=== PATIENT | male | born 1950 | race Caucasian/White ===

== ENCOUNTER → 2017-08-12 | Emergency (ER) | payer MEDICARE, BC ==
[~2017-08-12] VITALS: Ht 172.7 cm; Wt 69.4 kg
[~2017-08-12] MED LIST: AUGMENTIN 500-1 EACH ORAL; METFORMIN HCL1000 M1 ORAL; METFORMIN HCL500 M1 ORAL; Tetanus/Diptheria/Pertussis Vaccine 0.5ml Syr IM ONE
[2017-08-12 16:10] VITALS: BP 102/72
--- NOTE | 2017-08-12 16:37 | Emergency Room Report ---
History of Present Illness General Chief Complaint: Animal Bite Source: Patient Present Illness HPI The patient is a 66-year-old male presenting for dog bites to the right hand. He states that this occurred 2 hours prior to arrival. He states that it was a small domesticated dog that was unknown to him. He is unsure if the animal had vaccinations. he denies any pain. He did notice some bleeding from the wound. His last tetanus shot is unknown. He denies any other symptoms or injury Allergies: Coded Allergies: No Known Allergies (Unverified , 08/12/17) Patient History Past Medical History: see triage record Pertinent Family History: none Reviewed Nursing Documentation: PMH: Agreed, PSxH: Agreed Nursing Documentation-PMH Hx Diabetes: Yes Review of Systems All Other Systems: negative except mentioned in HPI Physical Exam Vital Signs Date Time Temp Pulse Resp B/P (MAP) Pulse Ox O2 Delivery O2 Flow Rate FiO2 08/12/17 15:09 97.9 76 16 102/72 96 Room Air Sp02 EP Interpretation: reviewed, normal General Appearance: no apparent distress, alert, GCS 15, non-toxic Head: normocephalic, atraumatic Eyes: bilateral eye normal inspection, bilateral eye PERRL Musculoskeletal: back normal, gait/station normal, normal range of motion, non- tender Neurologic: alert, oriented x3, responsive, motor strength/tone normal, sensory intact, speech normal Psychiatric: judgement/insight normal, memory normal, mood/affect normal, no suicidal/homicidal ideation Skin: laceration - small 1cm puncture of the R distal thumb Lymphatic: no adenopathy Medical Decision Making PA Attestation Dr. Stubbs is my supervising physician. Patient management was discussed with my supervising physician Diagnostic Impression: Primary Impression: Dog bite of extremity ER Course The patient is a 66-year-old male presenting for dog bite to the right hand. Ddx considered include but not limited to animal bite, wound infection, fracture, tendon/ligament injury, avulsion, nerve damage PE: NAD small 1cm puncture of the R distal thumb. SILT. Full AROM intact. No bleeding The wound is thoroughly cleaned with normal saline and Betadine. Dressing applied Patient is given tetanus shot and first dose of antibiotics. He is discharged home with prescription for Augmentin and will followup with primary doctor. He is given ER precautions to return Last Vital Signs Date Time Temp Pulse Resp B/P (MAP) Pulse Ox O2 Delivery O2 Flow Rate FiO2 08/12/17 16:10 97.9 16 102/72 96 Room Air 08/12/17 15:09 76 Status: improved Disposition: HOME, SELF-CARE Condition: Improved Scripts Amoxicillin/Potassium Clav 500-125 Tablet* (AUGMENTIN 500-125 TABLET*) 1 Each Tablet 1 TAB ORAL THREE TIMES A DAY, #15 TAB Prov: MARQUISE GUERIN 08/12/17 Patient Instructions: Animal Bite Additional Instructions: I discussed my findings with the patient. All questions and concerns have been answered. Treatment and medication compliance have been addressed. I advised the patient that they need to follow up with PMD in 3-5 days. Return to ED if symptoms worsen, new symptoms arise, or if needed for any reason. Patient verbalized understanding of discharge instructions. MARQUISE GUERIN Aug 12, 2017 16:37
== END | disposition home or self-care (01) ==
LOC: EMR 15:10
DX: S61.451A Open bite of right hand, initial encounter (principal); Z23 Encounter for immunization; E11.9 Type 2 diabetes mellitus without complications; W54.0XXA Bitten by dog, initial encounter; Y92.9 Unspecified place or not applicable
CPT/HCPCS: 90471; 90715; 99283